=== PATIENT | male | born 1945 | race Caucasian/White ===

== ENCOUNTER 2016-10-15 16:00 | Outpatient (RCR) | payer OTHER | END 2016-10-26 | disposition home or self-care (01) | LOC: PTY 16:00 | DX: G89.4 Chronic pain syndrome (principal); R53.81 Other malaise ==

== ENCOUNTER 2016-11-20 13:00 | Outpatient (RCR) | payer OTHER | END 2016-11-26 | disposition home or self-care (01) | LOC: PTY 13:00 | DX: G89.4 Chronic pain syndrome (principal); R53.81 Other malaise ==